=== PATIENT | male | born 1995 | race Caucasian/White ===

== ENCOUNTER 2025-02-11 09:20 | Outpatient (CLI) | payer OTHER, SELFPAY ==
--- NOTE | 2025-02-11 09:33 | XRR_ITS ---
PROCEDURE INFORMATION: Exam: XR Chest Exam date and time: 02/11/2025 9:47 AM Age: 29 years old Clinical indication: Cough and shortness of breath; PT worked with charcoal for a long time, has been SOB for several weeks with exertion; Additional info: Cough, factory work TECHNIQUE: Imaging protocol: Radiologic exam of the chest. Views: 2 views. COMPARISON: No relevant prior studies available. FINDINGS: Lungs: Unremarkable. No consolidation. Pleural spaces: Unremarkable. No pleural effusion. No pneumothorax. Heart/Mediastinum: Unremarkable. No cardiomegaly. Bones/joints: Unremarkable. XR/XR chest 2V* [id number] IMPRESSION: No acute findings.
--- NOTE | 2025-02-11 09:33 | XRR_ITS ---
PROCEDURE INFORMATION: Exam: XR Lumbosacral Spine Exam date and time: 02/11/2025 9:47 AM Age: 29 years old Clinical indication: Low back pain; PT states HX of a low back strain several months ago that made him unable to get out of bed for 2 days; Additional info: Numbness bilaterally. TECHNIQUE: Imaging protocol: Radiologic exam of the lumbosacral spine. Views: 2 or 3 views. COMPARISON: No relevant prior studies available. FINDINGS: Bones/joints: Vertebral body heights are well-maintained. Alignment is normal. No fractures are identified. Soft tissues: Paraspinal soft tissues appear within normal limits. XR/XR lumbar spine 2-3V* [id number] IMPRESSION: Within normal limits.
== END 2025-02-11 09:21 | disposition home or self-care (01) ==
DX: R05.9 Cough, unspecified (principal); R20.0 Anesthesia of skin; R20.2 Paresthesia of skin; R06.02 Shortness of breath
CPT/HCPCS: 71046; 72100